=== PATIENT | female | born 1955 | race Caucasian/White ===

== ENCOUNTER → 2017-10-22 | Outpatient (CLI) | payer BC ==
[~2017-10-22] MED LIST: ASPIRIN 81M81 MG/TA2 PO; CALCIUM CITRATE1 TA7 PO; CARDI-OMEGA1000 MG PO; LIPITOR 10MG10 MG PO; LORTAB 7.5/5001 TAB; MULTIPLE VITAMI1 CAP PO; NORCO 325 MG-7.1 TAB PO; PERCOCET 325 MG1 TA2 PO; PRILOSEC 20MG20 MG PO; ULTRAM 50MG TAB50 MG PO; VITAMIN D 50,1.25 MG PO; XARELTO10 MG PO
== END ==
LOC: MC.RAD 11:35
DX: Z12.31 Encounter for screening mammogram for malignant neoplasm of breast (principal)